=== PATIENT | female | born 1985 | race Caucasian/White ===

== ENCOUNTER 2016-12-21 02:56 | Emergency (ER) | payer SELFPAY ==
[~2016-12-21] VITALS: Ht 154.9 cm; Wt 72.7 kg
[2016-12-21 03:30] VITALS: BP 116/55
== END 2016-12-21 03:31 | disposition home or self-care (01) ==
LOC: EMS 02:57
DX: J02.9 Acute pharyngitis, unspecified (principal); F17.210 Nicotine dependence, cigarettes, uncomplicated
CPT/HCPCS: 99283